=== PATIENT | male | born 1950 | race Caucasian/White ===

== ENCOUNTER → 2024-09-13 14:19 | Outpatient (REF) | payer MEDICARE, OTHER, SELFPAY | LOC: MRI 3T 14:19 | PROVIDERS: ATTENDING PHYSICIAN Surgery; FAMILY PHYSICIAN Family Medicine | DX: R97.20 Elevated prostate specific antigen [PSA] (principal) | CPT/HCPCS: 72197; A9575 ==

== ENCOUNTER → 2024-10-11 13:03 | Outpatient (REF) | payer MEDICARE, OTHER, SELFPAY | LOC: CLAB 13:03 | PROVIDERS: ATTENDING PHYSICIAN Surgery | DX: R97.20 Elevated prostate specific antigen [PSA] (principal) | CPT/HCPCS: 88305; 88344 ==

== ENCOUNTER 2024-11-30 15:53 | Outpatient (RCR) | payer MEDICARE, OTHER, SELFPAY | END 2024-11-30 23:59 | disposition home or self-care (01) | LOC: RPT 15:53 | PROVIDERS: ATTENDING PHYSICIAN Specialist; FAMILY PHYSICIAN Family Medicine | DX: C61 Malignant neoplasm of prostate (principal); Z73.6 Limitation of activities due to disability | CPT/HCPCS: 97112; 97162; 97530 ==

== ENCOUNTER 2024-12-06 06:15 | Inpatient (IN) | payer MEDICARE, OTHER, SELFPAY ==
[2024-11-30 09:05] LABS: Hematocrit 44.9 % (39.0-52.0); Hemoglobin 15.3 g/dL (13.0-18.0); Mean Corp Hgb Conc. 34.1 g/dL (33.0-37.0); Mean Corpuscular Hgb 31.8 pg (27.0-31.0); Mean Corpuscular Volume 93.3 fL (80.0-94.0); Mean Platelet Volume 10.8 fL (7.4-10.4); Platelet Count 144 10^3/uL (130-400); Red Blood Cell Count 4.81 10^6/uL (4.70-6.10); Red Cell Dist. Width 12.9 % (11.5-14.5); White Blood Cell Count 5.2 10^3/uL (4.8-10.8)
[2024-11-30 09:30] LABS: Calcium 8.9 mg/dl (8.4-10.2); Carbon Dioxide 28 mmol/L (22-30); Chloride 103 mmol/L (98-107); Glucose 104 mg/dl (70-99); Potassium 4.6 mmol/L (3.5-5.1); Sodium 140 mmol/L (135-145); eGFR > 60.00
[2024-11-30 09:42] LABS: Blood Urea Nitrogen 14 mg/dl (9-20)
[2024-11-30 13:43] VITALS: BMI 26.2
[2024-12-06] VITALS (15 sets, daily range): BP systolic 94–148; BP diastolic 55–86; BMI 26.2
[2024-12-06] MEDS: NEBCIN 480 MG/100 ML ENEMA 1 BOTTLE RECTAL (06:41)
[2024-12-06] MEDS: NORMOSOL-R/PLASMALYTE-A 1000 IV ×3 (06:42→22:30)
--- NOTE | 2024-12-06 09:38 | W.IMMPOSTOP ---
Surgical Immed Post Op Note
-
Primary Surgeon: Mansoor
Assisting Surgeon: Jodie
Pre-op Diagnosis: prostate cancer
Post-op Diagnosis: same
Procedure Performed: radical perineal prostatectomy
Anesthesia Type: GET
Specimen / Cultures: prostate; bladder neck and urethral margins
Estimated Blood Loss: 350 ml
Complications: None
[2024-12-06 10:46] LABS: Hematocrit 42.8 % (39.0-52.0); Hemoglobin 14.4 g/dL (13.0-18.0)
[2024-12-06 10:56] LABS: Blood Urea Nitrogen 15 mg/dl (9-20); Calcium 8.3 mg/dl (8.4-10.2); Carbon Dioxide 22 mmol/L (22-30); Chloride 106 mmol/L (98-107); Estimated Creatinine Clearance 72 ml/min; Glucose 149 mg/dl (70-99); Potassium 4.6 mmol/L (3.5-5.1); Sodium 136 mmol/L (135-145); eGFR > 60.00
[2024-12-06] MEDS: TORADOL 15 MG IV ×3 (11:05→22:30)
[2024-12-06] MEDS: COLACE PO ×2 (12:16)
[2024-12-06] MEDS: COLACE 100 MG PO ×2 (12:16→16:03)
[2024-12-06] MEDS: NORMOSOL-R/PLASMALYTE-A IV (12:59)
--- NOTE | 2024-12-06 14:14 | PTCARENOTE ---
Pt arrived to [address] [place] [address] PACU s/p radical perineal prostatectomy. Pt AAOx3, Rizvi in place draining blue/green urine. pen russell dressing C/D/I. pt states no pain at this time. Oriented to call main and room, bed locked and in lowest position. Call
main within reach.
[2024-12-06] MEDS: LOW STRENGTH ASPIRIN 81 MG PO (16:03)
[2024-12-06] MEDS: ZETIA 10 MG PO (16:03)
[2024-12-06] MEDS: LIPITOR 80 MG PO (16:12)
[2024-12-06] MEDS: POLYSPORIN/DOUBLE ANTIBIOTIC 1 APPLIC TOPICAL (20:13)
[2024-12-07 03:00] VITALS: BP 118/64
[2024-12-07] MEDS: TORADOL 15 MG IV ×3 (05:30→16:52)
[2024-12-07 06:24] LABS: Hematocrit 35.5 % (39.0-52.0); Hemoglobin 12.3 g/dL (13.0-18.0); Mean Corp Hgb Conc. 34.6 g/dL (33.0-37.0); Mean Corpuscular Hgb 31.8 pg (27.0-31.0); Mean Corpuscular Volume 91.7 fL (80.0-94.0); Mean Platelet Volume 10.8 fL (7.4-10.4); Platelet Count 129 10^3/uL (130-400); Red Blood Cell Count 3.87 10^6/uL (4.70-6.10); White Blood Cell Count 11.9 10^3/uL (4.8-10.8)
[2024-12-07 06:36] LABS: Blood Urea Nitrogen 20 mg/dl (9-20); Calcium 7.9 mg/dl (8.4-10.2); Carbon Dioxide 26 mmol/L (22-30); Chloride 104 mmol/L (98-107); Estimated Creatinine Clearance 66 ml/min; Glucose 127 mg/dl (70-99); Potassium 4.7 mmol/L (3.5-5.1); Sodium 135 mmol/L (135-145); eGFR > 60.00
[2024-12-07 07:35] VITALS: BP 104/63
[2024-12-07] MEDS: POLYSPORIN/DOUBLE ANTIBIOTIC 1 APPLIC TOPICAL ×2 (08:12→23:29)
[2024-12-07] MEDS: ASPIR LOW (ENTERIC COATED) 81 MG PO (08:12)
[2024-12-07] MEDS: LEVAQUIN 100 IV (08:12)
[2024-12-07] MEDS: ZETIA 10 MG PO (08:12)
[2024-12-07] MEDS: COLACE 100 MG PO ×3 (08:12→16:52)
[2024-12-07] MEDS: NORMOSOL-R/PLASMALYTE-A 1000 IV (08:21)
--- NOTE | 2024-12-07 08:34 | W.PN.SURGUPD ---
Addendum entered and electronically signed by Deric Max MD 12/08/24 13:10:
Acutre blood loss anemia
Original Note:
Surgical Update
Surgical Update
Stable 1 day s/p radical perineal prostatectomy
Kodak diet
Ambulating
Urine clear
Labs good
Dressing reinforced: minimally stained
---
Anticipate discharge in AM 12/08/24
Continue aspirin
[2024-12-07 11:15] VITALS: BP 122/62
--- NOTE | 2024-12-07 11:44 | CM ---
Met with pt at bedside
Pt reports he lives with his in a 1 story home; 1 step to enter
Independent at baseline, no device for ambulation, drives
DME - none
SNF/HH - no past hx
Has ride at discharge
PCP - Gaye Ji
Pharm - [facility] [place]
CM consult for [facility] - Rizvi/wound care
Discussed with pt - receptive - has no preference to agency
TT sent to Liaison for [facility] for HH needs
Plan - anticipate home with [facility] when medically stable
--- NOTE | 2024-12-07 11:58 | VNURNOTE ---
Home Health Liaison met with patient and spouse at bedside to discuss [facility] nurse/therapy, visits, schedule and homebound status. Patient is agreeable and understands that visits at home will be 2-3 x per week to assess and teach medical management.
Patient is aware that [facility] will contact them for start of care in 1-2 days after discharge from .
[facility] referral completed in [facility]. Provided spouse and patient with [facility] contact information.
[2024-12-07] MEDS: LIPITOR 80 MG PO (12:22)
[2024-12-07 15:38] VITALS: BP 137/76
[2024-12-07] MEDS: NORMOSOL-R/PLASMALYTE-A IV (18:03)
[2024-12-07 23:08] VITALS: BP 111/63
[2024-12-07] MEDS: MELATONIN 5 MG PO (23:40)
[2024-12-08 07:53] VITALS: BP 133/69
[2024-12-08] MEDS: ZETIA 10 MG PO (08:13)
[2024-12-08] MEDS: ASPIR LOW (ENTERIC COATED) 81 MG PO (08:13)
[2024-12-08] MEDS: COLACE 100 MG PO (08:13)
[2024-12-08] MEDS: LEVAQUIN 100 IV (08:13)
[2024-12-08] MEDS: POLYSPORIN/DOUBLE ANTIBIOTIC 1 APPLIC TOPICAL (08:14)
[2024-12-08 10:33] LABS: Glucose - Point of Care 134 mg/dl (70-99)
--- NOTE | 2024-12-08 10:40 | PN.CDI ---
CDI
- -
CDI:
Physician Documentation Request
Admit Date: 12/06/24 06:15
Dear Doctor Mansoor,
Clinical Indicators:
Patient admitted with adenocarcinoma of the prostate; s/p Radical Perineal Prostatectomy/bladder neck reconstruction 12/06.
12/06 OP report, EBL: 350 mL (patient remained on low-dose aspirin as per Cardiology recommendations).
Hgb/Hct trend:
11/30/24 12/06/24 12/07/24
08:12 10:13 05:08
Hgb 15.3 14.4 12.3 L
Hct 44.9 42.8 35.5 L
Based on the above, could you clarify in the progress notes, the appropriate diagnosis, if significant, that supports the above abnormalities and additional evaluation, monitoring and/or treatment rendered:
Acute blood loss anemia
Abnormal lab value, clinically insignificant
Other
Use of terms such as suspected, likely, concern for, or probable (associated with a specific diagnosis that is being evaluated, monitored, or treated as if it exists) are acceptable and can be coded in the inpatient setting, when documented at the
time of discharge.
Thank you,
Juli Overton RN BSN
CDI Specialist
available via tiger text
Please use your independent medical judgment in providing your response.
--- NOTE | 2024-12-08 10:45 | PTCARENOTE ---
RN into bathroom after pt c/o dizziness and sweating while sitting on the toilet having a BM. Pt denies bearing down. BP sitting 92/62 HR 74. Bp standing to pivot to chair to wheel to bed 83/53 HR 74, pt with increased dizziness. Pt assisted back to
toilet and immediately expelled a loose BM. BP sitting on toilet 110/64 HR 79, pt denying dizziness at this time. Pt assisted to stand BP 102/66 HR 92, pt continuing to deny dizziness. Perineal wound care provided. Dr Max ok for now shower at
this time and RN to irrigate area with NSS. Dr Max made aware that laura drain fell out during Bm. Dr Max to see pt later today. Pt ambulated back to bed, continues to deny dizziness. Care remains ongoing.
[2024-12-08] MEDS: COLACE PO (12:25)
--- NOTE | 2024-12-08 13:09 | W.DS.TRANS ---
DC Summary - Gis Coordinator
-
Discharge Instructions:
Sleep Apnea Risk Low
Discharge Diagnosis/Procedures Prostate cancer
Diet No restrictions
Activity No strenuous activity
Additional Activity for 2 weeks
Driving Restrictions No driving for 1 week
Bathing Restrictions shower off after each BM the next 5 days
Other Services VN
Wound Care Visiting nurse to remove Rizvi around 9 am
Thursday12/19/24
Instructions:
Stand-Alone Forms:
Changes to Home Medications: No
Discharge Medications:
DC Medications w/original date entered in [facility]
aspirin 81 mg tablet,delayed release 81 mg PO DAILY #0 tabs 12/21/15
atorvastatin 80 mg tablet 80 mg PO DAILY #30 tabs 12/21/15
ezetimibe 10 mg tablet 10 mg PO DAILY 11/29/24
multivitamin 1 tab PO DAILY 11/29/24
tadalafil 5 mg tablet 5 mg PO DAILY 11/29/24
tamsulosin 0.4 mg capsule (Flomax) 0.4 mg PO HS 11/29/24
Home Medication Changes
Pending Results: No
--- NOTE | 2024-12-08 14:41 | CM ---
Pt for discharge today
Met with pt/ at bedside
[facility] to follow when d/c'ed
Has ride home with
Given IMM
Plan - home with [facility]
[2024-12-08 15:10] VITALS: BP 115/63
== END 2024-12-08 16:10 | disposition home health service (06) | DRG 707 ==
LOC: 2 SOUTH 06:15
PROVIDERS: ADMITTING PHYSICIAN Specialist; FAMILY PHYSICIAN Family Medicine
PROC: 0TBD0ZX Excision of Urethra, Open Approach, Diagnostic (ICD-10-PCS; 2024-12-06)
PROC: 0TBC0ZX Excision of Bladder Neck, Open Approach, Diagnostic (ICD-10-PCS; 2024-12-06)
PROC: 0VT30ZZ Resection of Bilateral Seminal Vesicles, Open Approach (ICD-10-PCS; 2024-12-06)
PROC: 0VT00ZZ Resection of Prostate, Open Approach (ICD-10-PCS; 2024-12-06)
PROC: 0VTQ0ZZ Resection of Bilateral Vas Deferens, Open Approach (ICD-10-PCS; 2024-12-06)
DX: C61 Malignant neoplasm of prostate (principal); D62 Acute posthemorrhagic anemia; N40.1 Benign prostatic hyperplasia with lower urinary tract symptoms; I25.10 Atherosclerotic heart disease of native coronary artery without angina pectoris; E78.00 Pure hypercholesterolemia, unspecified; N52.9 Male erectile dysfunction, unspecified; R39.12 Poor urinary stream; N39.43 Post-void dribbling; I25.2 Old myocardial infarction; Z80.42 Family history of malignant neoplasm of prostate; Z79.82 Long term (current) use of aspirin; Z79.899 Other long term (current) drug therapy; Z95.5 Presence of coronary angioplasty implant and graft
CPT/HCPCS: 88305; 88309; 88332; 36415; 80048; 82962; 85014; 85018; 85027; 86850; 86900; 86901; 88331; A4648

== ENCOUNTER 2025-01-17 08:46 | Outpatient (RCR) | payer MEDICARE, OTHER, SELFPAY | END 2025-01-17 23:59 | disposition home or self-care (01) | LOC: RPT 08:46 | PROVIDERS: ATTENDING PHYSICIAN Specialist; FAMILY PHYSICIAN Family Medicine | DX: C61 Malignant neoplasm of prostate (principal); Z73.6 Limitation of activities due to disability; R32 Unspecified urinary incontinence | CPT/HCPCS: 97110; 97112; 97164; 97530 ==

== ENCOUNTER 2025-02-02 15:02 | Outpatient (RCR) | payer MEDICARE, OTHER, SELFPAY | END 2025-02-02 23:59 | disposition home or self-care (01) | LOC: RPT 15:02 | PROVIDERS: ATTENDING PHYSICIAN Specialist; FAMILY PHYSICIAN Family Medicine | DX: C61 Malignant neoplasm of prostate (principal); Z73.6 Limitation of activities due to disability; R32 Unspecified urinary incontinence; Z98.890 Other specified postprocedural states; Z90.79 Acquired absence of other genital organ(s) | CPT/HCPCS: 97112; 97530 ==

== ENCOUNTER 2025-02-23 09:58 | Outpatient (RCR) | payer MEDICARE, OTHER, SELFPAY | END 2025-02-23 23:59 | disposition home or self-care (01) | LOC: RPT 09:58 | PROVIDERS: ATTENDING PHYSICIAN Specialist; FAMILY PHYSICIAN Family Medicine | DX: C61 Malignant neoplasm of prostate (principal); Z73.6 Limitation of activities due to disability; R32 Unspecified urinary incontinence; Z98.890 Other specified postprocedural states; Z90.79 Acquired absence of other genital organ(s) | CPT/HCPCS: 97110; 97112; 97530 ==

== ENCOUNTER 2025-03-30 09:54 | Outpatient (RCR) | payer MEDICARE, OTHER, SELFPAY | END 2025-03-30 10:48 | disposition home or self-care (01) | LOC: RPT 09:54 | PROVIDERS: ATTENDING PHYSICIAN Specialist; FAMILY PHYSICIAN Family Medicine | DX: C61 Malignant neoplasm of prostate (principal); Z73.6 Limitation of activities due to disability; R32 Unspecified urinary incontinence; Z98.890 Other specified postprocedural states; Z90.79 Acquired absence of other genital organ(s) | CPT/HCPCS: 97110; 97530 ==